=== PATIENT | male | born 1950 | race Caucasian/White ===

== ENCOUNTER → 2021-08-30 12:28 | Outpatient (CLI) | payer OTHER, SELFPAY ==
--- NOTE | 2021-08-30 | DI.CT.S_ITS ---
PROCEDURE: CT CHEST WO CON INDICATIONS: Other nonspecific abnormal finding of lung field TECHNIQUE: Noncontrast 5 mm thick sections acquired from the pulmonary apices to the posterior costophrenic angles. 1 mm lung window, 5 mm thick coronal and sagittal and 7 mm axial MIP reformats were then acquired. For radiation dose reduction, the following was used: automated exposure control, adjustment of mA and/or kV according to patient size. COMPARISON: Outside Facility, , CT THORAX W/O CONTRAST, 10/11/2020, 9:50. FINDINGS: Image quality: Excellent. Lungs and pleura: There are several solid bilateral lung nodules which are all stable in size, most measuring between 1.0 and 1.6 cm. Index nodules are as follows: Right middle lobe 1.3 cm, stable. Superior segment right lower lobe 1.2 cm, stable. Left lower lobe 1.4 cm, previously measured at 1.5 cm. No new suspicious lung nodules. No new parenchymal consolidations, ground-glass opacities, or pleural effusions. Mediastinum: Heart size is normal. No pericardial effusion. No mediastinal adenopathy by size criteria. Thoracic aorta and central pulmonary arteries are normal in size. Esophagus is normal in caliber. No hiatal hernia. Bones and chest wall: No suspicious bony lesions. Degenerative endplate spurs in the thoracic spine. No vertebral body compression fractures. No axillary or supraclavicular adenopathy by size criteria. Thyroid gland is normal . Abdomen: Visualized upper abdominal solid organs and bowel loops appear normal in the absence of contrast. IMPRESSION: 1. Multiple bilateral solid pulmonary nodules are stable. These may be post infectious/inflammatory, granulomatous, or less likely metastatic disease given lack of significant change. 2. No visible adenopathy. Dictated by: Jennifer Cortez M.D. on 09/12/2021 at 13:25 Approved by: Jnenifer Cortez M.D. on 09/12/2021 at 13:39
== END ==
PROVIDERS: PCP Internal Medicine; Referring Provider Internal Medicine; Visit Provider Internal Medicine
DX: R91.8 Other nonspecific abnormal finding of lung field (principal)
CPT/HCPCS: 71250

== ENCOUNTER → 2022-08-13 12:26 | Outpatient (CLI) | payer OTHER, SELFPAY ==
--- NOTE | 2022-08-13 | DI.RAD.S_ITS ---
PROCEDURE: XR TIBIA FUBULA RT 2V INDICATIONS: Bone disorder TECHNIQUE: 2 views of the tibia and fibula were acquired. COMPARISON: [facility], CR, XR FEMUR RT MIN 2V, 08/13/2022, 12:47. FINDINGS: Bones: No fractures or dislocations. No suspicious bony lesions. Mild arthritic changes are noted at the knee. Soft tissues: No suspicious soft tissue calcifications or masses. IMPRESSION: No acute osseous abnormality. Dictated by: Lizzy Siddiqui M.D. on 08/13/2022 at 16:52 Approved by: Lizzy Siddiqui M.D. on 08/13/2022 at 16:53
--- NOTE | 2022-08-13 | DI.RAD.S_ITS ---
PROCEDURE: XR FEMUR RT MIN 2V INDICATIONS: Bone disorder TECHNIQUE: 2 views of the femur were acquired. COMPARISON: [facility], CR, XR TIBIA FIBULA RT 2V, 08/13/2022, 12:47. FINDINGS: Bones: No fractures or dislocations. No suspicious bony lesions. Arthritic changes are noted at the knee as well as right hip. Soft tissues: No suspicious soft tissue calcifications or masses. IMPRESSION: No acute osseous abnormality. Dictated by: Lizzy Siddiqui M.D. on 08/13/2022 at 16:53 Approved by: Lizzy Siddiqui M.D. on 08/13/2022 at 16:53
== END ==
PROVIDERS: PCP Internal Medicine; Referring Provider Physician Assistant; Visit Provider Physician Assistant
DX: M89.8X6 Other specified disorders of bone, lower leg (principal); M89.8X5 Other specified disorders of bone, thigh
CPT/HCPCS: 73552; 73590

== ENCOUNTER → 2022-08-21 08:10 | Outpatient (CLI) | payer OTHER, SELFPAY ==
--- NOTE | 2022-08-21 | DI.US.S_ITS ---
PROCEDURE: US SCROTUM INDICATIONS: LEFT TESTICULAR PAIN/SWELLING TECHNIQUE: Real-time scanning was performed of the scrotum and testicles, with image documentation. Color and pulse Doppler interrogation was performed of both testicles. COMPARISON: None. FINDINGS: Right: The right testis measures 3.9 x 3.2 x 2.4 centimeters. Echotexture is heterogeneous. Arterial and venous flows are present on color and spectral evaluation. Microlithiasis. Tiny 2-3 millimeter intratesticular suspected cyst. No varicocele or hydrocele. Heterogeneous epididymis. Adjacent to the right epididymis, there is a irregular lesion measuring 11 x 8 x 5 millimeters with vascularity and punctate calcifications. Right epididymal head cyst cluster measuring up to 7 millimeters. Left: Left testis measures 4.1 x 3.9 x 2.3 centimeters. Echotexture is heterogeneous. Microlithiasis. A tiny intratesticular cyst measuring 2 millimeters is present. Arterial and venous flows are documented on color and spectral Doppler. Left hydrocele with mobile debris, septations, and hyperdensities. Heterogeneous left epididymis with anechoic cyst cluster measuring 6 millimeters. IMPRESSION: Complex moderate left hydrocele. Flows are documented in both testes. Epididymal vascularity bilaterally within normal limits. Bilateral epididymal head cysts and bilateral microlithiasis. Extratesticular mass with calcifications adjacent to the right epididymal head measuring up to 11 millimeters. Benign etiologies are more common in the extratesticular space, consider follow-up imaging. Dictated by: Ricky Mcdonald M.D. on 08/21/2022 at 16:06 Approved by: Ricky Mcdonald M.D. on 08/21/2022 at 16:12
== END ==
PROVIDERS: PCP Internal Medicine; Referring Provider Physician Assistant; Visit Provider Physician Assistant
DX: N43.40 Spermatocele of epididymis, unspecified (principal); N43.3 Hydrocele, unspecified; N50.3 Cyst of epididymis; N50.9 Disorder of male genital organs, unspecified
CPT/HCPCS: 76870

== ENCOUNTER → 2023-01-06 15:16 | Outpatient (CLI) | payer OTHER, SELFPAY ==
--- NOTE | 2023-01-06 15:26 | DI.RAD.S_ITS ---
PROCEDURE: XR HAND LT MIN 3V INDICATIONS: bilat hand pain/ r hip pain TECHNIQUE: 3 views of the hand(s) acquired. COMPARISON: None. FINDINGS: Bones: No fractures or dislocations. Carpal bones are normally aligned. No suspicious bony lesions. Mild interphalangeal joint space narrowing with associated osteophytes. Mild 1st CMC joint space narrowing with associated osteophytosis and sclerosis. Soft tissues: No suspicious soft tissue calcifications. 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 This is within normal limits for age. Dictated by: Adis Oropeza M.D. on 01/06/2023 at 16:35 Approved by: Adis Oropeza M.D. on 01/06/2023 at 16:36
--- NOTE | 2023-01-06 15:26 | DI.RAD.S_ITS ---
PROCEDURE: XR HAND RT MIN 3V INDICATIONS: bilat hand pain/ r hip pain TECHNIQUE: 3 views of the hand(s) acquired. COMPARISON: None. FINDINGS: Bones: No fractures or dislocations. Carpal bones are normally aligned. No suspicious bony lesions. Mild interphalangeal and 1st CMC joint space narrowing and associated osteophytosis. Subchondral sclerosis about the 1st CMC joint space. Soft tissues: No suspicious soft tissue calcifications. 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 Dictated by: Adis Oropeza M.D. on 01/06/2023 at 16:36 Approved by: Adis Oropeza M.D. on 01/06/2023 at 16:36
--- NOTE | 2023-01-06 15:26 | DI.RAD.S_ITS ---
PROCEDURE: XR HIP W PEL IF DONE RT 2V INDICATIONS: bilat hand pain/ r hip pain TECHNIQUE: 2 views of the hip were acquired. COMPARISON: None. FINDINGS: Bones: No fractures or dislocations. No suspicious bony lesions. The visualized pelvic ring appears intact. Bilateral nonuniform joint space narrowing of the hips, with associated osteophytosis. Soft tissues: No suspicious soft tissue calcifications or masses. 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 Dictated by: Adis Oropeza M.D. on 01/06/2023 at 16:37 Approved by: Adis Oropeza M.D. on 01/06/2023 at 16:37
== END ==
PROVIDERS: PCP Physician Assistant; Referring Provider Physician Assistant; Visit Provider Physician Assistant
DX: M16.11 Unilateral primary osteoarthritis, right hip (principal); M18.0 Bilateral primary osteoarthritis of first carpometacarpal joints; M19.042 Primary osteoarthritis, left hand; M19.041 Primary osteoarthritis, right hand; M79.641 Pain in right hand; M79.642 Pain in left hand; M25.551 Pain in right hip
CPT/HCPCS: 73130; 73502

== ENCOUNTER → 2023-01-27 13:07 | Outpatient (CLI) | payer OTHER, SELFPAY ==
--- NOTE | 2023-01-27 | DI.US.S_ITS ---
PROCEDURE: US ABDOMEN LIMITED INDICATIONS: Unilateral inguinal hernia TECHNIQUE: Real-time focused scanning was performed of the inguinal region, with image documentation. COMPARISON: None. FINDINGS: No inguinal hernias visualized in the right groin in the generalized area indicated by the patient. IMPRESSION: No sonographic evidence for right inguinal hernia. Dictated by: Lisa Nieves M.D. on 01/27/2023 at 14:13 Approved by: Lisa Nieves M.D. on 01/27/2023 at 14:13
== END ==
PROVIDERS: PCP Physician Assistant; Referring Provider Physical Medicine & Rehabilitation; Visit Provider Physical Medicine & Rehabilitation
DX: K40.90 Unilateral inguinal hernia, without obstruction or gangrene, not specified as recurrent (principal)
CPT/HCPCS: 76705

== ENCOUNTER → 2023-04-18 13:43 | Outpatient (CLI) | payer OTHER, SELFPAY ==
--- NOTE | 2023-04-18 | DI.CT.S_ITS ---
PROCEDURE: CT CHEST WO CON INDICATIONS: LUNG NODULE TECHNIQUE: Noncontrast 2.0-2.5 mm thick sections acquired from the pulmonary apices to the posterior costophrenic angles. 7 mm thick axial MIP and 5 mm coronal and sagittal reformats were then acquired. A low radiation dose technique was utilized. COMPARISON: [facility], CT, CT CHEST WO CON, 08/30/2021, 12:51. FINDINGS: Image quality: Diagnostic, given the low radiation dose technique. Lungs and pleura: Bilateral pulmonary nodules, sharply demarcated, or identified on prior CT scanning 08/30/21. These nodules all can be seen on the current study, and none of these have enlarged in size. No new pulmonary nodules are present. Several of the nodules appear very slightly diminished in size but this could represent a difference in scan angulation or scan level. Mediastinum: Heart size is normal. No pericardial effusion. No mediastinal adenopathy by size criteria. Thoracic aorta and central pulmonary arteries are normal in size. Esophagus is normal in caliber. No hiatal hernia. Bones and chest wall: No suspicious bony lesions. No vertebral body compression fractures. No axillary or supraclavicular adenopathy by size criteria. Thyroid gland is not well seen by this noncontrast technique . Abdomen: Visualized upper abdomen solid organs and bowel loops appear normal in the absence of contrast. IMPRESSION: Scattered bilateral pulmonary nodule stable from 08/30/21 CT scanning, or even slightly improved as discussed above. No new nodule is found. Benign etiology is presumed, no follow-up is recommended. Dictated by: Luis Alberto Becker M.D. on 04/18/2023 at 15:51 Approved by: Luis Alberto Becker M.D. on 04/18/2023 at 15:57
== END ==
PROVIDERS: PCP Physician Assistant; Referring Provider Physician Assistant; Visit Provider Physician Assistant
DX: R91.8 Other nonspecific abnormal finding of lung field (principal)
CPT/HCPCS: 71250

== ENCOUNTER → 2024-03-20 11:08 | Outpatient (CLI) | payer MEDICARE, SELFPAY ==
--- NOTE | 2024-03-20 | DI.MRI.S_ITS ---
PROCEDURE: MR HEAD/BRAIN WO CON INDICATIONS: HEADACHE TECHNIQUE: Non-contrast axial T1 spin echo, axial T2 fast spin echo, sagittal and axial FLAIR, coronal T2 fast spin echo, axial gradient echo, axial diffusion and ADC through the brain. COMPARISON: None. FINDINGS: Image quality: Excellent. CSF spaces: Ventricles appear symmetric in size and shape. Basal cisterns are patent. No extra-axial fluid collections. Brain: No intracranial bleeds or mass effects. There is cerebral volume loss for age. There are periventricular and deep white matter chronic small vessel ischemic changes. Brainstem appears normal. Diffusion-weighted images show no acute infarct. No chronic ischemic insults. Normal intravascular flow voids are present. Skull and face: Calvarial bone marrow is normal in signal. Orbits are normal. Sinuses: Sinuses and mastoids are clear. IMPRESSION: 1. No acute intracranial process. 2. Mild atrophy and chronic microvascular ischemic changes. Dictated by: Lizzy Siddiqui M.D. on 03/22/2024 at 10:59 Approved by: Lizzy Siddiqui M.D. on 03/22/2024 at 11:00
== END ==
PROVIDERS: PCP Physician Assistant; Referring Provider Physician Assistant; Visit Provider Physician Assistant
DX: R51.9 Headache, unspecified (principal); H53.9 Unspecified visual disturbance
CPT/HCPCS: 70551

== ENCOUNTER → 2024-04-02 10:40 | Outpatient (CLI) | payer MEDICARE, SELFPAY ==
--- NOTE | 2024-04-02 | DI.NM.S_ITS ---
PROCEDURE: NM BONE SCAN WHOLE BODY RADIOPHARMACEUTICAL: 21 mCi Tc-99m MDP IV. INDICATIONS: POLYARTHRALGIA W/PAIN IN BONES BETWEEN JOINTS TECHNIQUE: Delayed whole-body scintigrams were obtained approximately 3-4 hours after intravenous injection of radiotracer. Anterior and posterior views were acquired from vertex to feet. COMPARISON: None. FINDINGS: There is normal expected radiotracer excretion in the urinary systems. There is possible urinary contamination. Probably moderate spine, shoulder, thumb base, knee, and ankle/midfoot degenerative uptake are present. Mild hip probable degenerative uptake also seen. Slight spinal curvature to the left in the lumbar spine. Nonspecific uptake is seen around the maxilla, which may be related to sinus or dental disease. No high suspicion focus of radiotracer uptake. A tiny focus of radiotracer is seen adjacent to the left hip, indeterminate for contamination versus soft tissue uptake. IMPRESSION: Presumed degenerative changes are seen in the spine, lower extremities, and visualized upper extremities. Other findings as above. No definite focal uptake highly suspicious for malignancy. If further evaluation is desired, consider MRI focused on the area of greatest concern. Dictated by: Ricky Mcdonald M.D. on 04/02/2024 at 16:16 Approved by: Ricky Mcdonald M.D. on 04/02/2024 at 16:19
== END ==
LOC: NUCM 10:41
PROVIDERS: PCP Physician Assistant; Referring Provider Family Medicine; Visit Provider Family Medicine
DX: M89.8X9 Other specified disorders of bone, unspecified site (principal); M25.50 Pain in unspecified joint
CPT/HCPCS: 78306; A9503

== ENCOUNTER → 2024-05-29 08:22 | Outpatient (CLI) | payer MEDICARE, SELFPAY ==
--- NOTE | 2024-05-29 08:23 | DI.MRI.S_ITS ---
PROCEDURE: MR KNEE LT WO CON INDICATIONS: Meniscal injury lateral knee pain left TECHNIQUE: Noncontrast sagittal PD fast spin echo and T2 fast spin echo with fat saturation, sagittal 3-D FLASH with fat saturation; coronal T1 spin echo and PD fast spin echo with fat saturation, and axial PD fast spin echo with fat saturation through the knee. COMPARISON: [facility], CR, XR FEMUR 2+ VIEWS LEFT, 08/22/2023, 8:03. [facility], NM, NM BONE SCAN WHOLE BODY, 04/02/2024, 11:36. FINDINGS: Image quality: Excellent. Menisci: Complex tear involving posterior horn of medial meniscus extending to both superior and inferior articulating surfaces. Peripheral displacement of medial meniscus bowing medial collateral ligament is also seen. Subtle oblique tear is also seen involving posterior horn of lateral meniscus extending to superior articulating surface. The meniscal root ligaments appear intact. Cruciate ligaments: The anterior cruciate ligament is markedly attenuated with intrasubstance T2 hyperintense signal. The PCL is intact. Medial structures: The medial collateral ligament appears mildly thickened with surrounding edema. Visualized portions of the pes anserinus tendons appear normal. No abnormal bursal fluid. Lateral structures: The lateral collateral ligament, long and short heads of the biceps femoris tendon appear intact. The popliteus tendon appears normal. Iliotibial band appears normal. Anterior structures: The quadriceps and patellar tendons appear intact. Patellar alignment is normal. No femoral trochlear dysplasia or ventral trochlear prominence. No edema in the infrapatellar fat pad. Bones and cartilage: No bone marrow contusions or fractures. 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 Joint space: There is small knee joint fluid. No Fragoso's cyst. Normal appearing synovial plicae are incidentally noted. IMPRESSION: New 1. Complex tear involving posterior horn of medial meniscus extending to both superior and inferior articulating surfaces. Subtle oblique tear involving posterior horn of lateral meniscus extending to superior articulating surface. 2. Markedly attenuated appearing and Cl suggestive of moderate to high-grade partial-thickness tear. No definite ACL rupture. The PCL is intact. 3. Low-grade MCL sprain. 4. [id number] tricompartmental osteoarthritis and chondromalacia most notably in medial femoral tibial compartment. No fracture or dislocation. Small joint effusion, no loose bodies. Dictated by: Edgardo Navarro M.D. on 05/31/2024 at 10:59 Approved by: Edgardo Navarro M.D. on 05/31/2024 at 11:38
== END ==
LOC: MRI 08:22
PROVIDERS: PCP Physician Assistant; Referring Provider Nurse Practitioner Family; Visit Provider Nurse Practitioner Family
DX: S83.232A Complex tear of medial meniscus, current injury, left knee, initial encounter (principal); S83.282A Other tear of lateral meniscus, current injury, left knee, initial encounter; S83.412A Sprain of medial collateral ligament of left knee, initial encounter; M17.12 Unilateral primary osteoarthritis, left knee; M94.262 Chondromalacia, left knee; M25.462 Effusion, left knee; M25.562 Pain in left knee
CPT/HCPCS: 73721

== ENCOUNTER 2024-12-17 14:03 | Emergency (ER) | payer MEDICARE, SELFPAY ==
[2024-12-17] VITALS (8 sets, daily range): BP systolic 147–183; BP diastolic 66–99; PULSE 46–55; RESP 16–20; TEMP 36.6; O2SAT 90–100; BMI 31.8
--- NOTE | 2024-12-17 14:39 | EKG_ITS ---
[place] [id number] [place] [id number] Test Date: 2024-12-17 Pat Name: Cas Schulte Department: [facility] Room: Gender: Male Humanities Instructor: CHEIKH : 1950 Requested By: Order Number: [id number] Reading MD: Levi Lopez Measurements Intervals [place] Rate: 49 P: DC: QRS: -38 QRSD: 96 T: 0 QT: 466 QTc: 420 Interpretive Statements Junctional rhythm Left axis deviation Electronically Signed On 12-27-2024 18:47:56 PDT by Levi Lopez
--- NOTE | 2024-12-17 15:05 | DI.CT.S_ITS ---
PROCEDURE: CT ABDOMEN PELVIS WO CON INDICATIONS: RLQ pain TECHNIQUE: Axial sections were acquired from the lung bases to the pubic symphysis. Coronal and sagittal reformats were performed. For radiation dose reduction, the following was used: automated exposure control, adjustment of mA and/or kV according to patient size. COMPARISON: US, US ABDOMEN LIMITED, 01/27/2023, 13:29. FINDINGS: Image quality: Diagnostic. Lower Chest: 1 cm left lower lobe nodule URINARY: Right Kidney: No stones or hydronephrosis. Right Ureter: No hydroureter. Left Kidney: Punctate superior pole calcification. No obstruction. Left Ureter: No hydroureter. Bladder: Normal wall thickness. No stones. ABDOMEN: Liver: No contour-deforming solid mass. Gallbladder: No radiopaque gallstones or wall thickening. Biliary ducts: No biliary dilation. Pancreas: No ductal dilation. Spleen: Size is within normal limits. Adrenal Glands: No adrenal nodules. Stomach and Bowel: Normal colonic caliber, without significant wall thickening. Diverticula without inflammatory change. Appendix is normal. Peritoneum: No abnormal intraperitoneal fluid. No free air. Ventral Wall: No hernia. Abdominal Nodes: No enlarged retroperitoneal or mesenteric lymph nodes. Vessels: Aorta and inferior vena cava are normal in size. PELVIS: Pelvic Organs: Prostate gland is enlarged. Pelvic Nodes: Unremarkable. Miscellaneous: Bilateral fat containing inguinal hernias are seen. Bones: Leftward scoliotic curvature. IMPRESSION: No obstructing stones or hydronephrosis. Diverticulosis. Appendix is normal. Dictated by: Lizzy Siddiqui M.D. on 12/17/2024 at 16:58 Approved by: Lizzy Siddiqui M.D. on 12/17/2024 at 17:01
[2024-12-17] MEDS: KETOROLAC 30 MG/ML VIAL 15 MG IV (15:49)
[2024-12-17 16:03] LABS: Add Manual Diff / Slide Review NO; Alanine Aminotransferase 22 IU/L (<50); Albumin 4.3 g/dL (3.5-5.0); Albumin Globulin Ratio 1.7 (1.0-2.8); Alkaline Phosphatase 84 U/L (38-126); Aspartate Aminotransferase 30 IU/L (17-59); BUN Creatinine Ratio 19.7 (6-22); Basophils Absolute Auto 0 /uL (0-100); Basophils Percent Auto 0.5 % (0-2); Bilirubin Total 1.1 mg/dL (0.2-1.3); Blood Urea Nitrogen 15 mg/dL (9-20); Carbon Dioxide 22 mmol/L (22-32); Chloride 107 mmol/L (98-107); Eosinophils Absolute Auto 200 /uL (0-450); Eosinophils Percent Auto 2.6 % (2-4); Estimated Glomerular Filt Rate > 60 mL/min (>60); Globulin 2.5 g/dL (1.7-4.1); Glucose 111 mg/dL (80-110); HEMOLYSIS 39 (0-50); Hematocrit 46.6 % (41-53); Lipase 76 U/L (23-300); Lymphocytes Absolute Auto 1900 /uL (1100-4500); Lymphocytes Percent Auto 28.6 % (25-40); Mean Corpuscular HGB Conc 34.3 % (30-36); Mean Corpuscular Hemoglobin 31.1 PG (26-34); Mean Corpuscular Volume 90.6 fL (80-100); Monocytes Absolute Auto 700 /uL (0-900); Monocytes Percent Auto 10.7 % (3-14); Neutrophils Absolute Auto 3800 /uL (1500-7000); Neutrophils Percent Auto 57.6 % (50-75); Platelet Count 187 X10^3/uL (150-400); Red Blood Cell Count 5.14 X10^6/uL (4.5-5.9); Red Cell Distribution Width 13.5 % (11.6-14.8); Sodium 138 mmol/L (137-145); Total Protein 6.8 g/dL (6.3-8.2); White Blood Cell Count 6.7 X10^3/uL (4.5-11.0)
[2024-12-17 18:21] LABS: Bacteria Urine None Seen; RBC Urine None Seen (0-5/HPF); Squamous Epithelial Cell Urine 0-1 /HPF (0-5/HPF); Urine Volume 10mL (spun); WBC Urine 0-1/HPF (0-5/HPF)
[2024-12-17 18:22] LABS: Culture Indicated Urine Cult Not Indicated; Mucus Urine 1+ (Negative)
--- NOTE | 2024-12-17 19:25 | EKG_ITS ---
[place] [id number] [place] [id number] Test Date: 2024-12-17 Pat Name: Cas Schulte Department: [facility] Room: Gender: Male Repairer: CHEIKH : 1950 Requested By: Order Number: [id number] Reading MD: Levi Lopez Measurements Intervals [place] Rate: 49 P: 64 IN: 190 QRS: -39 QRSD: 110 T: 5 QT: 460 QTc: 415 Interpretive Statements Sinus bradycardia Left axis deviation Electronically Signed On 12-27-2024 18:48:11 PDT by Levi Lopez
--- NOTE | 2024-12-17 22:45 | ED.ABDPAIN ---
HPI - Abdominal Pain General Chief Complaint: Abdominal Pain Stated Complaint: appendicitis? r sided abd pain sent by doctor Time Seen by Provider: 12/17/24 22:29 Source: patient, RN notes reviewed and old records reviewed Mode of arrival: Ambulatory Limitations: no limitations History of Present Illness HPI narrative: 74-year-old male on Celebrex and Zyrtec as his only medications with complaint of right lower quadrant pain for the past 9 days has not resolved. Patient states it seems to be worse in the morning particularly when he gets up we will sort of improve as the day goes by. Has been a little bit waxing and waning in intensity but has not resolved. He states Celebrex might be little bit helpful he was not sure. No fevers or chills. No chest pain or shortness of breath. No nausea or vomiting. States he has had normal bowel movements with no black or bloody stools. They have been well formed. Denies dysuria urgency or frequency. States pain is in the right lower quadrant does not radiate anywhere accept a little bit down his right thigh. Patient states no testicular pain. No back or flank pain. Has not had any rash or skin changes. Denies any trauma or injuries but does note he has been doing a lot physically lately. He has had some chronic tendon issues he states after having been on ciprofloxacin for a year for chronic urine infections. Patient states only medications he was stays or Celebrex and Zyrtec. States it no prior surgeries. Describes a iodine dye allergy from greater than 15 years ago states he stops breathing. Denies tobacco, alcohol or recreational drugs. Patient has been in touch with his primary care physician who encouraged him to come to evaluate for appendicitis. Related Data Home Medications Medication Instructions Recorded Confirmed tamsulosin PO 11/08/23 11/08/23 Allergies Allergy/AdvReac Type Severity Reaction Status Date / Time Iodinated Contrast Media Allergy Severe Anaphylaxis Verified 12/17/24 16:01 Review of Systems Review of Systems ROS Unobtainable: All systems reviewed & are unremarkable except as noted in HPI and below Patient History Social History Smoking Status: Never smoker Smoking Status: Never smoker Exam Narrative Exam Narrative: GENERAL: Alert and oriented x three, male in mild distress HEENT: Head normocephalic, atraumatic, EOMI, pupils reactive, face symmetric, moist mucous membranes NECK: Supple, full range of motion CARDIOVASCULAR: Regular rate and rhythm without murmurs, rubs or gallops. RESPIRATORY: Breath sounds equal bilaterally, no wheezes rales or rhonchi. ABDOMEN: Soft, nontender. Normoactive bowel sounds all 4 quadrants. No guarding or rebound, rigidity, no mass, no pulsatile mass or bruit. Patient has nontender. No changes to the skin. No inguinal hernia. : No CVA tenderness EXTREMITIES: Normal range of motion, no clubbing or edema. Neurovascularly intact NEUROLOGICAL: Cranial nerves II through XII grossly intact. Moving all extremities SKIN: Warm, dry, no petechiae, no rashes or lesions. Initial Vital Signs Initial Vital Signs: Vital Signs Temperature 98 F 12/17/24 14:34 Pulse Rate 54 L 12/17/24 14:34 Respiratory Rate 20 12/17/24 14:34 Blood Pressure 147/66 H 12/17/24 14:34 Pulse Oximetry 100 12/17/24 14:34 Oxygen Delivery Method Room Air 12/17/24 14:34 Course Orders Ordered: Discontinued Medications Hydrocodone Bitart/Acetaminophen (Hydrocodone/Acet 5/325 Prepack) 1 bottle MISC DIRECTED ONE Stop: 12/17/24 23:21 Last Admin: 12/17/24 23:33 Dose: 1 bottle Documented By: GAGE Sodium Chloride (Normal Saline 0.9%) 1,000 mls @ 1,000 mls/hr IV BOLUS ONE Stop: 12/17/24 16:05 Last Admin: 12/17/24 20:57 Dose: Not Given Documented By: Ketorolac Tromethamine (Ketorolac 30 Mg/Ml Vial) 15 mg IV NOW ONE Stop: 12/17/24 15:07 Last Admin: 12/17/24 15:49 Dose: 15 mg Documented By: DAVID Ondansetron HCl (Ondansetron 4 Mg/2 Ml Inj) 4 mg IV NOW PRN PRN Reason: Nausea And Vomiting Ondansetron HCl (Ondansetron 4 Mg Odt) 4 mg PO NOW PRN PRN Reason: Nausea And Vomiting Vital Signs Vital signs: Vital Signs - 8 hr 12/17/24 19:11 12/17/24 19:13 12/17/24 19:13 Pulse Rate 47 L Respiratory Rate Blood Pressure 183/88 H Pulse Oximetry 90 L 99 Oxygen Delivery Method 12/17/24 19:30 12/17/24 19:30 12/17/24 20:00 Pulse Rate 53 L 53 L Respiratory Rate Blood Pressure 149/99 H Pulse Oximetry 99 98 Oxygen Delivery Method Room Air 12/17/24 20:00 12/17/24 20:30 12/17/24 20:31 Pulse Rate 55 L Respiratory Rate Blood Pressure 159/72 H 158/76 H Pulse Oximetry 98 Oxygen Delivery Method 12/17/24 20:31 12/17/24 22:36 Pulse Rate 55 L 46 L Respiratory Rate 16 Blood Pressure 162/78 H Pulse Oximetry 98 93 Oxygen Delivery Method Room Air MDM - Abdominal Pain Lab Data 12/17/24 15:42 12/17/24 15:42 Labs: Lab Results 12/17/24 12/17/24 Range/Units 15:42 17:14 WBC 6.7 (4.5-11.0) X10^3/uL RBC 5.14 (4.5-5.9) X10^6/uL Hgb 16.0 (13.5-17.5) g/dL Hct 46.6 (41-53) % MCV 90.6 (80-100) fL MCH 31.1 (26-34) PG MCHC 34.3 (30-36) % RDW 13.5 (11.6-14.8) % Plt Count 187 (150-400) X10^3/uL Neut % (Auto) 57.6 (50-75) % Lymph % (Auto) 28.6 (25-40) % [place] % (Auto) 10.7 (3-14) % Eos % (Auto) 2.6 (2-4) % Baso % (Auto) 0.5 (0-2) % Neut # (Auto) 3800 (7574-1883) /uL Lymph # (Auto) 1900 (1864-0632) /uL [place] # (Auto) 700 (0-900) /uL Eos # (Auto) 200 (0-450) /uL Baso # (Auto) 0 (0-100) /uL Sodium 138 (137-145) mmol/L Potassium 4.0 (3.4-5.1) mmol/L Chloride 107 (98-107) mmol/L Carbon Dioxide 22 (22-32) mmol/L BUN 15 (9-20) mg/dL Creatinine 0.76 (0.66-1.25) mg/dL Estimated GFR > 60 (>60) mL/min BUN/Creatinine Ratio 19.7 (6-22) Glucose 111 H (80-110) mg/dL Calcium 9.0 (8.4-10.2) mg/dL Total Bilirubin 1.1 (0.2-1.3) mg/dL AST 30 (17-59) IU/L ALT 22 (<50) IU/L Alkaline Phosphatase 84 (38-126) U/L Total Protein 6.8 (6.3-8.2) g/dL Albumin 4.3 (3.5-5.0) g/dL Globulin 2.5 (1.7-4.1) g/dL Albumin/Globulin Ratio 1.7 (1.0-2.8) Lipase 76 (23-300) U/L Urine RBC None seen (0-5/HPF) Urine WBC 0-1/hpf (0-5/HPF) Ur Squamous Epith Cells 0-1 /hpf (0-5/HPF) Urine Bacteria None seen (None) Urine Mucus 1+ H (Negative) Ur Culture Indicated? Cult not indicated Vol Urine Centrifuged 10ml (spun) Point of care testing: Urine Dip Bedside Urine Glucose Negative Bedside Urine Bilirubin - Negative Bedside Urine Ketone - Negative Urine Specific [place] 1.015 Bedside Urine Occult Blood - Negative Bedside Urine pH 6.0 Bedside Urine Protein +/- 15 Bedside Urine Urobilinogen - Negative Bedside Urine Nitrite - Negative Bedside Urine Leukocytes +/- 15 Esterase MDM Narrative Medical decision making narrative: White blood count is 6.7 hemoglobin 16 platelets are 187. Electrolytes are appropriate BUN creatinine are normal glucose is 111, LFTs are negative. Leukocyte esterase positive, positive protein. Urine micro shows 1 white cell 1 squamous no bacteria no RBCs. CT abdomen pelvis shows no obstructing stone or hydro diverticulosis appendix is normal. Patient was 1 cm left lower lobe nodule in the lower chest. Discussed findings with the patient, patient is asymptomatic. He had a non-con CT abdomen pelvis no appendicitis, no hydro or obstructing stone. Discussed with the patient did not fully evaluate for aneurysm. He notes pain seems to be worse with movement and also notes it radiates down his leg. Discussed potential differential this time patient defers repeat imaging with IV contrast. We did discuss his anaphylaxis is from than 15 years ago so may has been the old prior contrast we could pre treat with Benadryl and Solu-Medrol but he defers. We will send culture for urine. We will give a prepack for narcotic pain medication. Discharge Plan Departure Patient Disposition: Home Clinical Impression: Pulmonary nodule, Abdominal pain Instructions: DI for Abdominal Pain-Adult Activity Restrictions/Additional Instructions: Follow up for recheck. Your imaging today was not noncontrast CT of your abdomen and pelvis shows a normal appendix no signs of hydro or kidney stones but is not fully conclusive. We did talk about doing a contrast CT and pretreating you with steroids and Benadryl. This would show the blood vessels better in your abdomen to evaluate for any changes to your aorta. It did incidentally show a pulmonary nodule but no other changes to the lungs. Please share this information with your physician. You can take 1 tablet [place] every 6 hours as needed for pain. Please return for fevers, new or worsening abdominal back or flank pain, any lightheadedness or passing out, persistent vomiting, black or bloody stools or other new or concerning changes. Prescriptions: No Action tamsulosin PO Referrals: Dunia Wall ARNP [Primary Care Provider] - Stand Alone Forms: Patient Portal/API/Survey
[2024-12-17] MEDS: HYDROCODONE/ACET 5/325 PREPACK 1 BOTTLE MISC (23:33)
== END 2024-12-17 23:33 | disposition home or self-care (01) ==
PROVIDERS: Family Medicine; Emergency Provider Emergency Medicine; PCP Nurse Practitioner Family
DX: R10.31 Right lower quadrant pain (principal); R91.1 Solitary pulmonary nodule
CPT/HCPCS: 36415; 74176; 80053; 81003; 81015; 83690; 85025; 87086; 93005; 96374; 99284; J1885

== ENCOUNTER 2025-03-07 11:07 | Emergency (ER) | payer MEDICARE, OTHER, SELFPAY ==
[2025-03-07] VITALS (27 sets, daily range): BP systolic 149–175; BP diastolic 68–87; PULSE 45–77; RESP 13–24; TEMP 36.4; O2SAT 93–99; BMI 32.5
--- NOTE | 2025-03-07 12:20 | DI.CT.S_ITS ---
PROCEDURE: CT HEAD/BRAIN WO CON INDICATIONS: balance changes TECHNIQUE: Noncontrast 4.5 mm thick angled axial sections acquired from the foramen magnum to the vertex, with coronal and sagittal reformats. For radiation dose reduction, the following was used: automated exposure control, adjustment of mA and/or kV according to patient size. COMPARISON: None. FINDINGS: Image quality: Diagnostic CSF spaces: Basal cisterns are patent. Lateral ventricles are symmetric. Volume: Vascular calcifications. Periventricular white matter disease is commonly seen with chronic microangiopathy. Volume loss is present. These findings are moderate Brain: No intracranial hemorrhage. Faulkner-white differentiation is grossly maintained. Craniofacial structures: No significant paranasal sinus opacity. IMPRESSION: No acute intracranial pathology. If there is high concern for parenchymal pathology, consider further evaluation with MRI. Dictated by: Ricky Mcdonald M.D. on 03/07/2025 at 12:59 Approved by: Ricky Mcdonald M.D. on 03/07/2025 at 13:00
--- NOTE | 2025-03-07 12:20 | DI.CT.S_ITS ---
PROCEDURE: CT ANGIO HEAD AND NECK INDICATIONS: balance changes, headache, TECHNIQUE: After the administration of intravenous contrast, 1 mm thick sections acquired from the aortic arch through the [place]. 3-dimensional efemeyf-cvqrehzcm-ayuruiavnu (MIP) and/or volume rendering reformats were acquired of the central intracranial vasculature and neck separately. For radiation dose reduction, the following was used: automated exposure control, adjustment of mA and/or kV according to patient size. COMPARISON: [facility], CT, CT HEAD/BRAIN WO CON, 03/07/2025, 12:33. [facility], CT, CT CHEST WO CON, 04/18/2023, 13:53. FINDINGS: Image quality: Diagnostic. Cerebral CT Angiogram: Internal carotid arteries: No acute findings. Intracranial ICA are patent with no significant stenosis. No occlusion. No aneurysm. Anterior cerebral arteries: Unremarkable. No significant stenosis. No occlusion. No aneurysm. Middle cerebral arteries: Unremarkable. No significant stenosis. No occlusion. No aneurysm. Posterior cerebral arteries: Unremarkable. No significant stenosis. No occlusion. No aneurysm. Basilar artery: Unremarkable. No significant stenosis. No occlusion. No aneurysm. Vertebral arteries: Unremarkable as visualized. Dural venous sinuses: Unremarkable given phase of enhancement. Other: Arterial phase appearance of the brain parenchyma is unremarkable. Neck CT Angiogram: Internal carotid arteries: Unremarkable. No significant stenosis. No dissection or occlusion. Common carotid arteries: Unremarkable. No significant stenosis. No dissection or occlusion. External carotid arteries: Unremarkable. No occlusion. Vertebral arteries: Unremarkable. No significant stenosis. No dissection or occlusion. Aortic Arch and Mediastinum: Partially visualized aortic arch unremarkable without evidence of aneurysm. Origins of the great vessels unremarkable. Other: Arterial phase soft tissues of the neck and chest are unremarkable. Stable benign pulmonary nodule, superior segment of right lower lobe, on the most inferior image provided, image 369 of series 5. This is unchanged since April,. IMPRESSION: No significant intracranial arterial abnormality is seen. No significant abnormality is seen within the arteries of the neck. Benign right pulmonary nodule. Any quantitative measurements of stenosis were performed using NASCET criteria. Dictated by: Levy Lloyd M.D. on 03/07/2025 at 14:48 Approved by: Levy Lloyd M.D. on 03/07/2025 at 14:52
[2025-03-07] MEDS: methylPREDNISolone 125 MG/2 ML VIAL IV (13:35)
[2025-03-07] MEDS: SODIUM CHLORIDE 0.9% 1,000 ML 1000 ML IV (13:35)
--- NOTE | 2025-03-07 13:42 | PC.NURSE ---
Patient reports anaphylactic reaction to contrast media 40 years ago that happened almost instantly after administration. Provider Rajank made aware and medications ordered as per NOV. Holding 50 mg IV Benadryl until ready for CT and then will give. Provider Rajank aware.
[2025-03-07 13:46] LABS: INR 0.9 (0.9-1.3); Prothrombin Time 10.6 SECONDS (9.4-12.5)
[2025-03-07 13:49] LABS: PTT Partial Thromboplastin Tim 37 SECONDS (25.1-36.5)
--- NOTE | 2025-03-07 13:50 | EKG_ITS ---
[place] [id number] [place] [address] Test Date: 2025-03-07 Pat Name: Cas Schulte Department: Room: Gender: Male Medical Insurance Coder: CARLOS : 1950 Requested By: Order Number: [id number] Reading MD: Gordo Nichols MD Measurements Intervals [place] Rate: 47 P: 42 DE: 192 QRS: -31 QRSD: 98 T: 2 QT: 468 QTc: 414 Interpretive Statements Sinus bradycardia Left axis deviation Electronically Signed On 03-07-2025 17:47:31 PDT by Gordo Nichols MD
[2025-03-07 13:51] LABS: Alanine Aminotransferase 18 IU/L (<50); Albumin 4.5 g/dL (3.5-5.0); Albumin Globulin Ratio 1.5 (1.0-2.8); Alkaline Phosphatase 88 U/L (38-126); Aspartate Aminotransferase 26 IU/L (17-59); BUN Creatinine Ratio 16.5 (6-22); Bilirubin Total 1.1 mg/dL (0.2-1.3); Blood Urea Nitrogen 15 mg/dL (9-20); Calcium 9.2 mg/dL (8.4-10.2); Carbon Dioxide 29 mmol/L (22-32); Chloride 104 mmol/L (98-107); Estimated Glomerular Filt Rate > 60 mL/min (>60); Ethanol (ETOH) < 10 mg/dL (<10); Glucose 91 mg/dL (70-99); HEMOLYSIS < 15 (0-50); Potassium 4.7 mmol/L (3.4-5.1); Sodium 140 mmol/L (137-145); Total Protein 7.5 g/dL (6.3-8.2)
[2025-03-07 13:58] LABS: Add Manual Diff / Slide Review NO; Basophils Absolute Auto 0 /uL (0-100); Basophils Percent Auto 0.8 % (0-2); Eosinophils Absolute Auto 200 /uL (0-450); Eosinophils Percent Auto 2.8 % (2-4); Hematocrit 48.2 % (41-53); Hemoglobin 16.2 g/dL (13.5-17.5); Lymphocytes Absolute Auto 2100 /uL (1100-4500); Lymphocytes Percent Auto 32.7 % (25-40); Mean Corpuscular HGB Conc 33.7 % (30-36); Mean Corpuscular Hemoglobin 30.9 PG (26-34); Mean Corpuscular Volume 91.7 fL (80-100); Monocytes Absolute Auto 600 /uL (0-900); Monocytes Percent Auto 9.5 % (3-14); Neutrophils Absolute Auto 3400 /uL (1500-7000); Neutrophils Percent Auto 54.2 % (50-75); Platelet Count 174 X10^3/uL (150-400); Red Blood Cell Count 5.26 X10^6/uL (4.5-5.9); Red Cell Distribution Width 14.1 % (11.6-14.8); White Blood Cell Count 6.3 X10^3/uL (4.5-11.0)
[2025-03-07] MEDS: diphenhydrAMINE 50 MG/ML VIAL IV (14:05)
[2025-03-07 15:04] LABS: Appearance Urine UA CLEAR; Bilirubin Urine UA NEGATIVE (NEGATIVE); Color Urine UA YELLOW; Glucose Urine UA NEGATIVE (Negative); Ketones Urine UA NEGATIVE (NEGATIVE); Leukocyte Esterase Urine UA TRACE (NEGATIVE); Nitrite Urine UA NEGATIVE (Negative); Occult Blood Urine UA TRACE-INTACT (Negative); Protein Urine UA NEGATIVE (Negative); Urobilinogen Urine UA 0.2 E.U./dL (0.2); pH Urine UA 5.5 (4.5-8.0)
[2025-03-07 15:12] LABS: Bacteria Urine Few (2-10); Culture Indicated Urine Cult Not Indicated; RBC Urine 0-1/HPF (0-5/HPF); Squamous Epithelial Cell Urine 1-5 /HPF (0-5/HPF); UR Morphine/Opiate cutoff 300 Negative (Negative); Ur Creatinine Normal (Normal); Ur Specific Gravity Normal (Normal); Urine Amphetamines Negative (Negative); Urine Barbiturates Negative (Negative); Urine Benzodiazepines Negative (Negative); Urine Cocaine Negative (Negative); Urine MDMA Negative (Negative); Urine Methadone Negative (Negative); Urine Methamphetamines Negative (Negative); Urine Oxycodone Negative (Negative); Urine Phencyclidine Negative (Negative); Urine Tetrahydrocannabinol Negative (Negative); Urine Tricyclic Antidepressant Negative (Negative); Urine Volume 10mL (spun); Urine pH Normal (Normal); WBC Urine 1-5/HPF (0-5/HPF)
--- NOTE | 2025-03-07 18:53 | ED.DIZZY ---
HPI - Dizziness General Chief Complaint: Dizziness Stated Complaint: dizzy sent by [facility] dr Time Seen by Provider: 03/07/25 12:52 Source: patient Mode of arrival: Ambulatory History of Present Illness HPI Narrative: 74-year-old male with no known stroke/TIA problems, no known cardiac problems, no known cerebrovascular disease, admits to intermittent dizziness for the last couple of months, worse yesterday and again this morning. No associated focal weakness face arm or leg. No associated focal numbness face arm or leg. Denies associated syncope or presyncopal symptoms. No associated diaphoresis. No associated nausea or vomiting, chest pain, shortness of breath. Symptoms not necessarily worse with exertion, not associated with eating or activity. Related Data Home Medications ?Medication ?Instructions ?Recorded ?Confirmed celecoxib 100 mg capsule 100 mg 03/07/25 cyclosporine 0.05 % eye drops in a 1 drp EYE-BOTH DAILY PRN eye pain 03/07/25 03/07/25 dropperette ketoconazole 2 % shampoo topical 03/07/25 03/07/25 Allergies Allergy/AdvReac Type Severity Reaction Status Date / Time Iodinated Contrast Media Allergy Severe Anaphylaxis Verified 03/07/25 11:24 Patient History Alcohol type: beer Exam Narrative Exam Narrative: GENERAL: Well-developed patient, in mild distress. HEAD: Atraumatic. Normocephalic. EYES: Pupils equal round and reactive. Extraocular motions intact. No scleral icterus. No injection or drainage. ENT: Nose without bleeding, purulent drainage. Throat without erythema, tonsillar hypertrophy or exudate. Airway patent. NECK: Trachea midline. Non tender CARDIOVASCULAR: Regular rate and rhythm without murmurs, gallops, or rubs. RESPIRATORY: Clear to auscultation. Breath sounds equal bilaterally. No wheezes, rales, or rhonchi. GASTROINTESTINAL: Abdomen soft, non-tender, nondistended. EXTREMITIES: No edema or joint tenderness. BACK: Nontender without deformity or crepitance. No flank tenderness. NEURO: AOx3. Cranial nerves last tested. Motor 5/5 upper extremities, 5/5 strength lower extremities. Bzalyo-gl-gqoc testing normal right upper extremity and left upper extremity. Sensation intact symmetrically to face arm leg. SKIN: No rash or erythema of visible areas Initial Vital Signs Initial Vital Signs: Vital Signs Temperature 97.6 F 03/07/25 11:24 Pulse Rate 49 L 03/07/25 11:24 Respiratory Rate 18 03/07/25 11:24 Blood Pressure 149/72 H 03/07/25 11:24 Pulse Oximetry 97 03/07/25 11:24 Oxygen Delivery Method Room Air 03/07/25 11:24 Course Orders Ordered: Discontinued Medications Diphenhydramine HCl (Diphenhydramine 50 Mg/Ml Vial) 50 mg IV NOW ONE Stop: 03/07/25 12:54 Last Admin: 03/07/25 14:05 Dose: 50 mg Documented By: SB Sodium Chloride (Normal Saline 0.9%) 1,000 mls @ 1,000 mls/hr IV BOLUS ONE Stop: 03/07/25 13:51 Last Infusion: 03/07/25 15:26 Dose: Infused Documented By: Admin: 03/07/25 13:35 Dose: 1,000 mls/hr Documented By: MICHAELA Methylprednisolone (Methylprednisolone 125 Mg/2 Ml Vial) 125 mg IV NOW ONE Stop: 03/07/25 12:54 Last Admin: 03/07/25 13:35 Dose: 125 mg Documented By: MICHAELA Vital Signs Vital signs: Vital Signs - 8 hr 03/07/25 19:22 Pulse Rate 71 Respiratory Rate 15 Blood Pressure 167/87 H Pulse Oximetry 96 Oxygen Delivery Method Room Air MDM - Dizziness Lab Data Attestation: I reviewed the patient's lab results. Lab results narrative: White blood cell count 6300, hemoglobin 16.2, platelets adequate. Glucose 91. Normal renal function. Normal serum CO2. Normal electrolytes. Liver functions normal. UA negative. UDS negative. TSH pending. 03/07/25 13:26 03/07/25 13:26 Labs: Lab Results 03/07/25 03/07/25 03/07/25 Range/Units 13:26 14:49 14:49 WBC 6.3 (4.5-11.0) X10^3/uL RBC 5.26 (4.5-5.9) X10^6/uL Hgb 16.2 (13.5-17.5) g/dL Hct 48.2 (41-53) % MCV 91.7 (80-100) fL MCH 30.9 (26-34) PG MCHC 33.7 (30-36) % RDW 14.1 (11.6-14.8) % Plt Count 174 (150-400) X10^3/uL Neut % (Auto) 54.2 (50-75) % Lymph % (Auto) 32.7 (25-40) % Martin % (Auto) 9.5 (3-14) % Eos % (Auto) 2.8 (2-4) % Baso % (Auto) 0.8 (0-2) % Neut # (Auto) 3400 (8698-9605) /uL Lymph # (Auto) 2100 (9604-8583) /uL Martin # (Auto) 600 (0-900) /uL Eos # (Auto) 200 (0-450) /uL Baso # (Auto) 0 (0-100) /uL PT 10.6 (9.4-12.5) SECONDS INR 0.9 (0.9-1.3) APTT 37 H (25.1-36.5) SECONDS Sodium 140 (137-145) mmol/L Potassium 4.7 (3.4-5.1) mmol/L Chloride 104 (98-107) mmol/L Carbon Dioxide 29 (22-32) mmol/L BUN 15 (9-20) mg/dL Creatinine 0.91 (0.66-1.25) mg/dL Estimated GFR > 60 (>60) mL/min BUN/Creatinine Ratio 16.5 (6-22) Glucose 91 (70-99) mg/dL Calcium 9.2 (8.4-10.2) mg/dL Total Bilirubin 1.1 (0.2-1.3) mg/dL AST 26 (17-59) IU/L ALT 18 (<50) IU/L Alkaline Phosphatase 88 (38-126) U/L Total Protein 7.5 (6.3-8.2) g/dL Albumin 4.5 (3.5-5.0) g/dL Globulin 3.0 (1.7-4.1) g/dL Albumin/Globulin Ratio 1.5 (1.0-2.8) TSH 1.85 (0.47-4.68) uIU/mL Urine Color Yellow Urine Appearance Clear Urine pH 5.5 Normal (4.5-8.0) Ur Specific [place] 1.010 (1.000-1.035) Urine Protein Negative (Negative) Urine Glucose (UA) Negative (Negative) g/dL Urine Ketones Negative (NEGATIVE) Urine Occult Blood Trace-intact (Negative) Urine Nitrate Negative (Negative) Urine Bilirubin Negative (NEGATIVE) Urine Urobilinogen 0.2 (0.2) E.U./dL Ur Leukocyte Esterase Trace H (NEGATIVE) Urine RBC 0-1/hpf (0-5/HPF) Urine WBC 1-5/hpf (0-5/HPF) Ur Squamous Epith Cells 1-5 /hpf (0-5/HPF) Urine Bacteria Few (2-10) H (None) Ur Culture Indicated? Cult not indicated Vol Urine Centrifuged 10ml (spun) U Opiates 300ng/mL cut Negative (Negative) Ur Oxycodone Screen Negative (Negative) Urine Methadone Screen Negative (Negative) Ur Barbiturates Screen Negative (Negative) U Tricyclic Antidepress Negative (Negative) Ur Phencyclidine Scrn Negative (Negative) Ur Amphetamines Screen Negative (Negative) U Methamphetamines Scrn Negative (Negative) Ur MDMA Scrn (Ecstasy) Negative (Negative) U Benzodiazepines Scrn Negative (Negative) Urine Cocaine Screen Negative (Negative) U Marijuana (THC) Screen Negative (Negative) Urine Specific [place] Normal (Normal) Ethyl Alcohol < 10 (<10) mg/dL Ur Creatinine Normal (Normal) Imaging Data CT scan - head: Radiologist's Impression: [place] [address] CT Scan Report Signed Patient: Cas Schulte MR#: [id number] : 1950 Acct:[id number] Age/Sex: 74 / M Date of Service: 03/07/25 Loc: ED Accession Number: [id number] Procedure: CT head/brain wo con Ordering Provider: Shannon Vizcaino D.O. PROCEDURE: CT HEAD/BRAIN WO CON INDICATIONS: balance changes TECHNIQUE: Noncontrast 4.5 mm thick angled axial sections acquired from the foramen magnum to the vertex, with coronal and sagittal reformats. For radiation dose reduction, the following was used: automated exposure control, adjustment of mA and/or kV according to patient size. COMPARISON: None. FINDINGS: Image quality: Diagnostic CSF spaces: Basal cisterns are patent. Lateral ventricles are symmetric. Volume: Vascular calcifications. Periventricular white matter disease is commonly seen with chronic microangiopathy. Volume loss is present. These findings are moderate Brain: No intracranial hemorrhage. Faulkner-white differentiation is grossly maintained. Craniofacial structures: No significant paranasal sinus opacity. IMPRESSION: No acute intracranial pathology. If there is high concern for parenchymal pathology, consider further evaluation with MRI. Dictated by: Ricky Mcdonald M.D. on 03/07/2025 at 12:59 Approved by: Ricky Mcdonald M.D. on 03/07/2025 at 13:00 CTA - brain/neck: Radiologist's Impression: Close Head CT (Signed) Ricky Mcdonald - 03/07/25 Head/Neck CTA (Signed) Levy Lloyd - 03/07/25 Launch?Image [address] [address] [address] Scan Report Signed Patient: Cas Schulte MR#: [id number] : 1950 Acct:[id number] Age/Sex: 74 / M Date of Service: 03/07/25 Loc: ED Accession Number: [id number] Procedure: CT angio head and neck Ordering Provider: Shannon Vizcaino D.O. PROCEDURE: CT ANGIO HEAD AND NECK INDICATIONS: balance changes, headache, TECHNIQUE: After the administration of intravenous contrast, 1 mm thick sections acquired from the aortic arch through the [place]. 3-dimensional tgeerli-lgyefoxnh-kwsliimnth (MIP) and/or volume rendering reformats were acquired of the central intracranial vasculature and neck separately. For radiation dose reduction, the following was used: automated exposure control, adjustment of mA and/or kV according to patient size. COMPARISON: [facility], CT, CT HEAD/BRAIN WO CON, 03/07/2025, 12:33. [facility], CT, CT CHEST WO CON, 04/18/2023, 13:53. FINDINGS: Image quality: Diagnostic. Cerebral CT Angiogram: Internal carotid arteries: No acute findings. Intracranial ICA are patent with no significant stenosis. No occlusion. No aneurysm. Anterior cerebral arteries: Unremarkable. No significant stenosis. No occlusion. No aneurysm. Middle cerebral arteries: Unremarkable. No significant stenosis. No occlusion. No aneurysm. Posterior cerebral arteries: Unremarkable. No significant stenosis. No occlusion. No aneurysm. Basilar artery: Unremarkable. No significant stenosis. No occlusion. No aneurysm. Vertebral arteries: Unremarkable as visualized. Dural venous sinuses: Unremarkable given phase of enhancement. Other: Arterial phase appearance of the brain parenchyma is unremarkable. Neck CT Angiogram: Internal carotid arteries: Unremarkable. No significant stenosis. No dissection or occlusion. Common carotid arteries: Unremarkable. No significant stenosis. No dissection or occlusion. External carotid arteries: Unremarkable. No occlusion. Vertebral arteries: Unremarkable. No significant stenosis. No dissection or occlusion. Aortic Arch and Mediastinum: Partially visualized aortic arch unremarkable without evidence of aneurysm. Origins of the great vessels unremarkable. Other: Arterial phase soft tissues of the neck and chest are unremarkable. Stable benign pulmonary nodule, superior segment of right lower lobe, on the most inferior image provided, image 369 of series 5. This is unchanged since April,. IMPRESSION: No significant intracranial arterial abnormality is seen. No significant abnormality is seen within the arteries of the neck. Benign right pulmonary nodule. Any quantitative measurements of stenosis were performed using NASCET criteria. Dictated by: Levy Lloyd M.D. on 03/07/2025 at 14:48 Approved by: Levy Lloyd M.D. on 03/07/2025 at 14:52 ECG Data Interpretation: Sinus bradycardia with rate of 47. No obvious ST segment elevation or depression changes. Flat T-waves lead AVF, inverted T-waves lead 3, upright T-waves lead 2. MS 192, QRS 98, QTC 414. MDM Narrative Medical decision making narrative: 74-year-old male with intermittent dizziness, worsened yesterday and today. Screening EKG showed sinus bradycardia. No beta-gildardo or calcium channel gildardo known. TSH pending. Symptoms sound intermittent in nature. On cardiac rehabilitation specialist heart rate 70-80s with normal blood pressure, patient is asymptomatic. Consider intermittent sinus bradycardia. Lab studies: White blood cell count 6300, hemoglobin 16.2, platelets adequate. Glucose 91. Normal renal function. Normal serum CO2. Normal electrolytes. Liver functions normal. UA negative. UDS negative. TSH pending. CT head noncontrast, no acute changes. See radiology report. CT angiogram head and neck vessels, no acute changes, no thrombosis or narrowing. See radiology report. Offered repeat interval troponin. Declined. Consider outpatient ambulatory cardiac monitoring. Patient currently in transition with PCP. We will give contact information for local cardiology on-call. Consider outpatient cardiac rehabilitation specialist and follow up with Cardiology. Offered repeat interval troponin, he does not want to stay any longer. He wanted to be discharged home. Discharged home now per patient request. Discharge Plan Departure Patient Disposition: Home Clinical Impression: Dizziness, Bradycardia Activity Restrictions/Additional Instructions: Intermittent dizziness. CT head screening negative. CT angiogram of the head and neck vessels also negative. Screening EKG showed sinus bradycardia, blood testing not suggestive of heart attack. On cardiac rehabilitation specialist heart rate 70-80s range. It is possible you might be having intermittent low heart rate bradycardic episodes that are symptomatic. Consider using cardiac rehabilitation specialist. You are currently in transition with your primary care provider. Contact information given for local wildlife rehabilitator on-call to hopefully arrange cardiac monitoring through their clinic. Consider contacting the office of Dr. Gregory tomorrow during open hours, to hopefully arrange ambulatory cardiac monitoring. Return earlier to this/nearest emergency department for any change worsening symptoms or any concerns prior. Prescriptions: No Action ketoconazole 2 % shampoo topical cyclosporine 0.05 % dropperette 1 drp EYE-BOTH DAILY PRN (Reason: eye pain) Patient Comments: [NO ORIGINAL SIG] celecoxib 100 mg capsule 100 mg Patient Comments: [NO ORIGINAL SIG] Referrals: Dunia Wall ARNP [Primary Care Provider, Nursing] Demetri Gregory MD [Physician, Cardiology] Stand Alone Forms: Patient Portal/API
[2025-03-07 19:46] LABS: Thyroid Stimulating Hormone 1.85 uIU/mL (0.47-4.68)
== END 2025-03-07 19:23 | disposition home or self-care (01) ==
PROVIDERS: Emergency Medicine; Emergency Provider Emergency Medicine; PCP Nurse Practitioner Family
DX: R42 Dizziness and giddiness (principal); R00.1 Bradycardia, unspecified
CPT/HCPCS: 36415; 70450; 70496; 70498; 80053; 80305; 80320; 81001; 84443; 85025; 85610; 85730; 93005; 93010; 96361; 96374; 96375; 99284; J1200; J2919; Q9967

== ENCOUNTER → 2025-04-15 09:14 | Outpatient (CLI) | payer MEDICARE, SELFPAY ==
[2025-04-15 10:11] LABS: Add Manual Diff / Slide Review NO; Hematocrit 47.7 % (41-53); Hemoglobin 16.0 g/dL (13.5-17.5); Lymphocytes Absolute Auto 1500 /uL (1100-4500); Mean Corpuscular HGB Conc 33.5 % (30-36); Mean Corpuscular Hemoglobin 30.6 PG (26-34); Mean Corpuscular Volume 91.5 fL (80-100); Platelet Count 171 X10^3/uL (150-400)
[2025-04-15 10:25] LABS: Alanine Aminotransferase 17 IU/L (<50); Albumin 4.2 g/dL (3.5-5.0); Albumin Globulin Ratio 1.8 (1.0-2.8); Alkaline Phosphatase 81 U/L (38-126); Blood Urea Nitrogen 15 mg/dL (9-20); Calcium 8.9 mg/dL (8.4-10.2); Carbon Dioxide 25 mmol/L (22-32); Chloride 107 mmol/L (98-107); Estimated Glomerular Filt Rate > 60 mL/min (>60); Globulin 2.4 g/dL (1.7-4.1); Glucose 97 mg/dL (70-99); HEMOLYSIS < 15 (0-50); Potassium 4.7 mmol/L (3.4-5.1); Sodium 137 mmol/L (137-145); Total Protein 6.6 g/dL (6.3-8.2); Uric Acid 6.9 mg/dL (3.5-8.5)
[2025-04-15 10:55] LABS: Thyroid Stimulating Hormone 1.62 uIU/mL (0.47-4.68)
[2025-04-16 01:36] LABS: CRP, High Sensitivity 1.10 mg/L (0.00-3.00)
[2025-04-16 17:41] LABS: SS A Ro Sjogrens Antibody < 0.2 AI (0.0-0.9); SS B La Sjogrens Antibody < 0.2 AI (0.0-0.9)
[2025-04-19 17:12] LABS: ANA Screen, IFA Negative (.)
== END ==
PROVIDERS: PCP Nurse Practitioner Family; Referring Provider Ophthalmology; Visit Provider Ophthalmology
DX: J98.4 Other disorders of lung (principal); H04.123 Dry eye syndrome of bilateral lacrimal glands
CPT/HCPCS: 36415; 80053; 82164; 84443; 84550; 85025; 85651; 86038; 86140; 86235; 86430